=== PATIENT | female | born 1980 | race American Indian/Alaskan Native ===

== ENCOUNTER 2017-11-22 14:28 | Emergency (ER) | payer MEDICAID ==
[2017-11-22 14:50] VITALS: BP 116/77
[2017-11-22 15:38] LABS: Bilirubin,Urine NEG (Negative); Blood,Urine SM (Negative); Color,Urine Yellow (Yellow); Mucus,Urine 3+ /HPF; Protein,Urine <15 mg/dL mg/dL (Negative); WBC,Urine < 1.0 /HPF (0.0-6.0)
[2017-11-22 15:39] LABS: HCG Qualitative,Urine Negative (Negative)
[2017-11-22] MEDS ORDERED: TORADOL IM ONE (17:05)
--- NOTE | 2017-11-22 17:11 | Emergency Department Report ---
ED Back Pain/Injury HPI - General Chief Complaint: Back Pain/Injury Stated Complaint: BACK PAIN Time Seen by Provider: 11/22/17 16:56 Source: patient Limitations: No Limitations - History of Present Illness Initial Comments: This is a 37-year-old female nontoxic, well nourished in appearance, no acute signs of distress presents to the ED with c/o of acute on chronic low back pain that radiates to bilateral lower extremities. Patient stated 2 weeks ago and was moving and developed pain that is increasing. Patient stated this is a chronic pain that is going on for about 5 years and had a pain specialist and has been taking Percocet, Motrin, and baclofen. Patient stated that she currently does not have a pain management clinic here because she just moved from [place]. Patient denies any trauma. Patient denies any chest pain, shortness of breathe, fever, chills, headache, nausea, vomiting, numbness, tingling, bladder or bowel stability. Patient denies any urinary symptoms. Patient states allergies to metroniadole. PMH includes anxiety and back pain. MD Complaint: back pain -: week(s) (2) Similar Symptoms Previously: Yes Place: home Radiation: left leg, right leg Severity: mild Severity scale (0 -10): 8 Quality: aching Consistency: constant Improves With: immobilization, supine, sitting upright Worsens With: movement, walking Context: while lifting, turning/twisting Associated Symptoms: denies other symptoms. denies: confusion, weakness, chest pain, numbness, difficulty walking, cough, difficulty urinating, diaphoresis, incontinence, fever/chills, constipation, headaches, abdominal pain, loss of appetite, malaise, nausea/vomiting, rash, seizure, shortness of breath, syncope - Related Data Previous Rx's Medication Instructions Recorded Last Taken Type Acetaminophen/Codeine [Tylenol 1 tab PO Q6H PRN #12 tab 11/22/17 Unknown Rx /Codeine # 3 tab] Ibuprofen [Motrin] 600 mg PO Q8H PRN #30 tablet 11/22/17 Unknown Rx Allergies Allergy/AdvReac Type Severity Reaction Status Date / Time metronidazole [From Flagyl] AdvReac Itching Verified 11/22/17 14:50 ED Review of Systems ROS: Stated complaint: BACK PAIN Other details as noted in HPI Constitutional: denies: chills, fever Eyes: denies: eye pain, eye discharge, vision change ENT: denies: ear pain, throat pain Respiratory: denies: cough, shortness of breath, wheezing Cardiovascular: denies: chest pain, palpitations Endocrine: no symptoms reported Gastrointestinal: denies: abdominal pain, nausea, diarrhea Genitourinary: denies: urgency, dysuria, discharge Musculoskeletal: back pain. denies: joint swelling, arthralgia Skin: denies: rash, lesions Neurological: denies: headache, weakness, paresthesias Psychiatric: denies: anxiety, depression Hematological/Lymphatic: denies: easy bleeding, easy bruising ED Past Medical Hx - Past Medical History Hx Psychiatric Treatment: Yes (anxiety,depression) Additional medical history: back injury with disability - Surgical History Past Surgical History?: No - Social History Smoking Status: Current Every Day Smoker Substance Use Type: None - Medications Home Medications: Home Medications Medication Instructions Recorded Confirmed Last Taken Type Acetaminophen/Codeine [Tylenol 1 tab PO Q6H PRN #12 tab 11/22/17 Unknown Rx /Codeine # 3 tab] Ibuprofen [Motrin] 600 mg PO Q8H PRN #30 tablet 11/22/17 Unknown Rx ED Physical Exam - General Limitations: No Limitations General appearance: alert, in no apparent distress - Head Head exam: Present: atraumatic, normocephalic - Eye Eye exam: Present: normal appearance Pupils: Present: normal accommodation - ENT ENT exam: Present: normal exam, mucous membranes moist - Neck Neck exam: Present: normal inspection, full ROM. Absent: tenderness, meningismus - Respiratory Respiratory exam: Present: normal lung sounds bilaterally. Absent: respiratory distress, wheezes, rales, rhonchi, stridor, chest wall tenderness, accessory muscle use, decreased breath sounds, prolonged expiratory - Cardiovascular Cardiovascular Exam: Present: regular rate, normal rhythm, normal heart sounds. Absent: bradycardia, tachycardia, irregular rhythm, systolic murmur, diastolic murmur, rubs, gallop - GI/Abdominal GI/Abdominal exam: Present: soft, normal bowel sounds - Rectal Rectal exam: Present: deferred - Extremities Exam Extremities exam: Present: normal inspection, full ROM, normal capillary refill - Back Exam Back exam: Present: normal inspection, full ROM, paraspinal tenderness (lumbar region). Absent: tenderness, CVA tenderness (R), CVA tenderness (L), muscle spasm, vertebral tenderness, rash noted - Expanded Back Exam Expanded Back exam: Absent: saddle anesthesia Back exam: Negative Straight Leg Raising: Left, Right - Neurological Exam Neurological exam: Present: alert, oriented X3, normal gait - Psychiatric Psychiatric exam: Present: normal affect, normal mood - Skin Skin exam: Present: warm, dry, intact, normal color. Absent: rash ED Course Vital Signs 11/22/17 14:46 Temperature 98.6 F Pulse Rate 84 Respiratory 18 Rate Blood Pressure 116/77 O2 Sat by Pulse 98 Oximetry - Reevaluation(s) Reevaluation #1: 11/22/17 17:12 Patient is speaking in full sentences with no signs of distress noted. ED Medical Decision Making - Medical Decision Making This is a 37-year-old female that presents with low back strain. Patient is stable was examined by me. There is no signs or symptoms of cauda equina syndrome. Patient did receive Toradol 60 mg IM and ED this patient was resolved and subsided. UA within normal limits. [facility] has been reviewed that does not show any medications recent within the last year. I will give patient a 3 day course of Tylenol #3. Patient was referred to Follow-up with a primary care doctor in 3-5 days or if symptoms worsen and continue return to emergency room as soon as possible. At time of discharge, the patient does not seem toxic or ill in appearance. No acute signs of distress noted. Patient agrees to discharge treatment plan of care. No further questions noted by the patient. Critical care attestation.: If time is entered above; I have spent that time in minutes in the direct care of this critically ill patient, excluding procedure time. ED Disposition Clinical Impression: Chronic low back pain Qualifiers: Back pain laterality: bilateral Sciatica presence: with sciatica Sciatica laterality: bilateral sciatica Qualified Code(s): M54.42 - Lumbago with sciatica , left side; M54.41 - Lumbago with sciatica, right side; G89.29 - Other chronic pain Disposition: - TO HOME OR SELFCARE Is pt being admited?: No Does the pt Need Aspirin: No Condition: Stable Instructions: Chronic Back Pain (ED), Acetaminophen/Codeine (By mouth) Additional Instructions: Follow-up with a primary care/pain doctor in 3-5 days or if symptoms worsen and continue return to emergency room as soon as possible. Prescriptions: Acetaminophen/Codeine [Tylenol /Codeine # 3 tab] 1 tab PO Q6H PRN #12 tab PRN Reason: Pain Ibuprofen [Motrin] 600 mg PO Q8H PRN #30 tablet PRN Reason: Pain Referrals: PRIMARY CARE, [Primary Care Provider] - 3-5 Days CLAUDIA BARGER MD [Staff Physician] - 3-5 Days RY FUENTES MD [Staff Physician] - 3-5 Days [facility] [Provider Group] - 3-5 Days [facility] [Outside] - 3-5 Days Forms: Work/School Release Form(ED)
== END 2017-11-22 17:24 | disposition home or self-care (01) ==
LOC: ED 14:28
DX: G89.29 Other chronic pain (principal); M54.5 Low back pain; F17.200 Nicotine dependence, unspecified, uncomplicated; F41.9 Anxiety disorder, unspecified; Z88.1 Allergy status to other antibiotic agents
CPT/HCPCS: 81001; 81025; 96372; 99283; J1885

== ENCOUNTER 2021-05-22 09:04 | Emergency (ER) | payer MEDICAID ==
[2021-05-22 09:09] VITALS: BP 152/94
--- NOTE | 2021-05-22 09:50 | Emergency Department Report ---
ED General Adult HPI - General Chief complaint: Extremity Injury, Upper Stated complaint: RT HAND MIDDLE FINGER Time Seen by Provider: 05/22/21 09:35 Source: patient Mode of arrival: Ambulatory Limitations: No Limitations - History of Present Illness Initial comments: 41-year-old -Luxembourger female patient without past medical history presents with complaints of right middle finger pain and swelling x2 weeks. She states the swelling now appears to be in the back aspect of her hand also. She rates her pain as a 7/10 in severity and states it is normally relieved with ibuprofen. Patient states she is unsure of how she injured her hand, however she states 1 night she was drinking at a bar and when she left the bar she noticed her hand and finger were in pain she denies fever/chills/sweats or history of cancer. Noted decrease sensation or difficulty moving the hand per patient. - Related Data Previous Rx's Medication Instructions Recorded Last Taken Type Acetaminophen/Codeine [Tylenol 1 tab PO Q6H PRN #12 tab 11/22/17 Unknown Rx /Codeine # 3 tab] Ibuprofen [Motrin] 600 mg PO Q8H PRN #30 tablet 11/22/17 Unknown Rx Naproxen 500 mg PO BID PRN #20 tablet 05/22/21 Unknown Rx Allergies Allergy/AdvReac Type Severity Reaction Status Date / Time metronidazole [From Flagyl] AdvReac Itching Verified 11/22/17 14:50 ED Review of Systems ROS: Stated complaint: RT HAND MIDDLE FINGER Other details as noted in HPI Constitutional: denies: chills, diaphoresis, fever, malaise, weakness Musculoskeletal: joint swelling, arthralgia Skin: denies: lesions, change in color Neurological: denies: numbness, paresthesias ED Past Medical Hx - Past Medical History Previous Medical History?: Yes Hx Psychiatric Treatment: Yes (anxiety,depression) Additional medical history: back injury with disability - Surgical History Past Surgical History?: No - Social History Smoking Status: Current Every Day Smoker Substance Use Type: None - Medications Home Medications: Home Medications Medication Instructions Recorded Confirmed Last Taken Type Acetaminophen/Codeine [Tylenol 1 tab PO Q6H PRN #12 tab 11/22/17 Unknown Rx /Codeine # 3 tab] Ibuprofen [Motrin] 600 mg PO Q8H PRN #30 tablet 11/22/17 Unknown Rx Naproxen 500 mg PO BID PRN #20 tablet 05/22/21 Unknown Rx ED Physical Exam - General Limitations: No Limitations General appearance: alert, in no apparent distress, obese - Head Head exam: Present: atraumatic, normocephalic - Eye Eye exam: Present: scleral icterus - Respiratory Respiratory exam: Absent: respiratory distress - Cardiovascular Cardiovascular Exam: Present: regular rate - Extremities Exam Extremities exam: Present: other (Mild swelling noted to right middle finger and minimally to dorsal aspect of hand with tenderness to palpation; no erythema noted; normal perfusion of the fingers and full range of motion of the hand noted) - Neurological Exam Neurological exam: Present: alert, oriented X3 - Psychiatric Psychiatric exam: Present: normal affect, normal mood - Skin Skin exam: Present: warm, dry, intact, normal color. Absent: rash ED Course Vital Signs 05/22/21 09:08 Temperature 98.9 F Pulse Rate 112 H Respiratory 19 Rate Blood Pressure 152/94 O2 Sat by Pulse 99 Oximetry ED Medical Decision Making - Radiology Data Radiology results: report reviewed RIGHT HAND 3 VIEW(S) INDICATION / CLINICAL INFORMATION: swelling and pain, worse in middle finger COMPARISON: None available. FINDINGS: BONES / JOINT(S): No acute fracture or subluxation. No significant arthritis. SOFT TISSUES: No significant abnormality. ADDITIONAL FINDINGS: None. - Medical Decision Making 41-year-old -Lux[place] female patient without past medical history presents with complaints of right middle finger pain and swelling x2 weeks. She states the swelling now appears to be in the back aspect of her hand also. She rates her pain as a 7/10 in severity and states it is normally relieved with ibuprofen. Patient states she is unsure of how she injured her hand, however she states 1 night she was drinking at a bar and when she left the bar she noticed her hand and finger were in pain she denies fever/chills/sweats or history of cancer. Noted decrease sensation or difficulty moving the hand per patient. X-ray does not show any bony abnormalities. No signs of infection on exam. She denies any IV drug use. Will treat for hand sprain conservatively with rice method and NSAIDs. Recommend follow-up with orthopedics in 3 to 5 days. She is well-appearing, her vitals are normal, she is stable for discharge home. Strict return precautions were discussed in detail with patient who verbalizes understanding. Critical care attestation.: If time is entered above; I have spent that time in minutes in the direct care of this critically ill patient, excluding procedure time. ED Disposition Clinical Impression: Right hand pain Disposition: 01 HOME / SELF CARE / HOMELESS Is pt being admited?: No Condition: Stable Instructions: Hand Pain, Finger Sprain, Adult Prescriptions: Naproxen 500 mg PO BID PRN #20 tablet PRN Reason: pain Referrals: [facility] [Provider Group] - 3-5 Days Forms: Work/School Release Form(ED)
--- NOTE | 2021-05-22 10:15 | XRay Report ---
RIGHT HAND 3 VIEW(S) INDICATION / CLINICAL INFORMATION: swelling and pain, worse in middle finger COMPARISON: None available. FINDINGS: BONES / JOINT(S): No acute fracture or subluxation. No significant arthritis. SOFT TISSUES: No significant abnormality. ADDITIONAL FINDINGS: None. Signer Name: Darren Ruiz MD Signed: 05/22/2021 10:11 AM Workstation Name: [id number]
== END 2021-05-22 11:00 | disposition home or self-care (01) ==
LOC: ED 09:04
DX: M79.644 Pain in right finger(s) (principal); F41.9 Anxiety disorder, unspecified; F32.9 Major depressive disorder, single episode, unspecified; F17.200 Nicotine dependence, unspecified, uncomplicated; Z88.1 Allergy status to other antibiotic agents
CPT/HCPCS: 99282

== ENCOUNTER 2021-05-29 10:30 | Emergency (ER) | payer MEDICAID | END 2021-05-29 10:35 | disposition left against medical advice (07) | LOC: ED 10:30 | DX: M79.89 Other specified soft tissue disorders (principal); Z53.21 Procedure and treatment not carried out due to patient leaving prior to being seen by health care provider ==

== ENCOUNTER 2021-05-29 14:49 | Emergency (ER) | payer MEDICAID ==
[2021-05-29 15:08] VITALS: BP 148/89
--- NOTE | 2021-05-29 15:19 | Event Note ---
ED Screening Note ED Screening Note: NEW ONSET BLE SWELLING AND SOB TACHYCARDIA ON EXAM INCREASING WORSE OVER 2 WEEKS NO CP NO COVID IMMUNIZATION PMH ANXIETY AND DEPRESSION RX NONE PSH NONE LMP 9-22 MOM AND DAD A/W This initial assessment/diagnostic orders/clinical plan/treatment(s) is/are subject to change based on patients health status, clinical progression and re- assessment by fellow clinical providers in the ED. Further treatment and workup at subsequent clinical providers discretion. Patient/guardian urged not to elope from the ED as their condition may be serious if not clinically assessed and managed. Initial orders include: RO CHF
[2021-05-29 15:43] LABS: Basophils # (Auto) 0.1 K/mm3 (0.0-0.1); Basophils % (Auto) 0.9 % (0.0-1.8); Eosinophils # (Auto) 0.4 K/mm3 (0.0-0.4); Eosinophils % (Auto) 4.5 % (0.0-4.3); Hematocrit 29.1 % (30.3-42.9); Hemoglobin 10.4 gm/dl (10.1-14.3); Lymphocytes # (Auto) 1.9 K/mm3 (1.2-5.4); Lymphocytes % (Auto) 22.6 % (13.4-35.0); Mean Corpuscular HGB Conc 36 % (30-34); Mean Corpuscular Volume 88 fl (79-97); Monocytes # (Auto) 0.5 K/mm3 (0.0-0.8); Monocytes % (Auto) 5.5 % (0.0-7.3); Platelet Count 306 K/mm3 (140-440); Red Blood Count 3.32 M/mm3 (3.65-5.03); Red Cell Distribution Width 13.9 % (13.2-15.2)
--- NOTE | 2021-05-29 15:51 | Emergency Department Report ---
ED General Adult HPI - General Chief complaint: Back Pain/Injury Stated complaint: LOW BACK PAIN/FALL Time Seen by Provider: 05/29/21 15:11 Source: EMS Mode of arrival: Stretcher Limitations: No Limitations - Related Data Previous Rx's Medication Instructions Recorded Last Taken Type Acetaminophen/Codeine [Tylenol 1 tab PO Q6H PRN #12 tab 11/22/17 Unknown Rx /Codeine # 3 tab] Ibuprofen [Motrin] 600 mg PO Q8H PRN #30 tablet 11/22/17 Unknown Rx Naproxen 500 mg PO BID PRN #20 tablet 05/22/21 Unknown Rx Allergies Allergy/AdvReac Type Severity Reaction Status Date / Time metronidazole [From Flagyl] AdvReac Itching Verified 11/22/17 14:50 ED Review of Systems ROS: Stated complaint: LOW BACK PAIN/FALL Other details as noted in HPI ED Past Medical Hx - Past Medical History Hx Psychiatric Treatment: Yes (anxiety,depression) Additional medical history: back injury with disability - Social History Smoking Status: Current Every Day Smoker Substance Use Type: None - Medications Home Medications: Home Medications Medication Instructions Recorded Confirmed Last Taken Type Acetaminophen/Codeine [Tylenol 1 tab PO Q6H PRN #12 tab 11/22/17 Unknown Rx /Codeine # 3 tab] Ibuprofen [Motrin] 600 mg PO Q8H PRN #30 tablet 11/22/17 Unknown Rx Naproxen 500 mg PO BID PRN #20 tablet 05/22/21 Unknown Rx ED Physical Exam - General Limitations: No Limitations ED Course Vital Signs 05/29/21 15:04 Temperature 98.6 F Pulse Rate 108 H Respiratory 16 Rate Blood Pressure 148/89 [Right] O2 Sat by Pulse 98 Oximetry ED Medical Decision Making - Lab Data Result diagrams: 05/29/21 15:29 Critical care attestation.: If time is entered above; I have spent that time in minutes in the direct care of this critically ill patient, excluding procedure time. ED Disposition Clinical Impression: Dependent edema Low back strain Qualifiers: Encounter type: initial encounter Qualified Code(s): S39.012A - Strain of muscle, fascia and tendon of lower back, initial encounter Fall Qualifiers: Encounter type: initial encounter Qualified Code(s): W19.XXXA - Unspecified fall, initial encounter Disposition: 07 LEFT AGAINST MEDICAL ADVICE Is pt being admited?: No Condition: Stable Instructions: Lumbar Sprain, Edema, Back Injury Prevention, [id number], How to Use Cold Therapy, Peripheral Edema Additional Instructions: Use ice. Avoid salt. Return for problems and if you change your mind about waiting to be seen. Referrals: PRIMARY CARE, [Referring] - 3-5 Days ALVARADO ISBELL MD [Staff Physician] - 3-5 Days
--- NOTE | 2021-05-29 15:57 | Emergency Department Report ---
ED General Adult HPI - General Chief complaint: Back Pain/Injury Stated complaint: LOW BACK PAIN/FALL Time Seen by Provider: 05/29/21 15:11 Source: EMS Mode of arrival: Stretcher Limitations: No Limitations - History of Present Illness Initial comments: Patient states that she is here primarily because of swelling in her feet and ankles. She apparently was here earlier today and chose not to wait. She left without completing treatment. She had gone. She then fell and injured her back. She decided to come back in. She has had ongoing pedal edema for weeks. She is just in a new rehab facility and was told that the salt in their food may make her feet swell. She has no chest pain or shortness of breath which is no back pain. Has no history of trauma. She states that she is also noticed swelling of the hands, but that has improved. Today, she states that her legs buckled and she fell. She does not have any leg weakness currently. She is complaining of lower back pain. The pain does not radiate or migrate. There was no head trauma or loss of consciousness. - Related Data Previous Rx's Medication Instructions Recorded Last Taken Type Acetaminophen/Codeine [Tylenol 1 tab PO Q6H PRN #12 tab 11/22/17 Unknown Rx /Codeine # 3 tab] Ibuprofen [Motrin] 600 mg PO Q8H PRN #30 tablet 11/22/17 Unknown Rx Naproxen 500 mg PO BID PRN #20 tablet 05/22/21 Unknown Rx Allergies Allergy/AdvReac Type Severity Reaction Status Date / Time metronidazole [From Flagyl] AdvReac Itching Verified 11/22/17 14:50 ED Review of Systems ROS: Stated complaint: LOW BACK PAIN/FALL Other details as noted in HPI Constitutional: weakness (As per HPI) ENT: denies: throat pain Respiratory: denies: shortness of breath Cardiovascular: as per HPI. denies: chest pain Endocrine: other (Weight gain as per HPI related to the edema) Gastrointestinal: denies: abdominal pain Musculoskeletal: as per HPI Hematological/Lymphatic: denies: easy bruising ED Past Medical Hx - Past Medical History Hx Psychiatric Treatment: Yes (anxiety,depression) Additional medical history: back injury with disability - Social History Smoking Status: Current Every Day Smoker Substance Use Type: None - Medications Home Medications: Home Medications Medication Instructions Recorded Confirmed Last Taken Type Acetaminophen/Codeine [Tylenol 1 tab PO Q6H PRN #12 tab 11/22/17 Unknown Rx /Codeine # 3 tab] Ibuprofen [Motrin] 600 mg PO Q8H PRN #30 tablet 11/22/17 Unknown Rx Naproxen 500 mg PO BID PRN #20 tablet 05/22/21 Unknown Rx ED Physical Exam - General Limitations: No Limitations, Other (Pulse ox was noted and normal) General appearance: alert, in no apparent distress - Head Head exam: Present: atraumatic, normal inspection - Eye Eye exam: Present: normal appearance. Absent: scleral icterus, conjunctival injection - ENT ENT exam: Present: normal external ear exam - Neck Neck exam: Present: normal inspection - Respiratory Respiratory exam: Absent: respiratory distress - Neurological Exam Neurological exam: Present: alert, oriented X3 - Psychiatric Psychiatric exam: Present: normal affect, normal mood - Skin Skin exam: Present: warm, dry ED Course Vital Signs 05/29/21 15:04 Temperature 98.6 F Pulse Rate 108 H Respiratory 16 Rate Blood Pressure 148/89 [Right] O2 Sat by Pulse 98 Oximetry - Reevaluation(s) Reevaluation #1: 05/29/21 15:55 Patient had been seen earlier. Plan was for an MD to see her. Patient wanted to wait by the phone. I saw her in the waiting room while we were waiting labs. She told me that she did not want to wait. She did not want to be rolled into a room. She did not want us to evaluate her. She stated that she just needed to be discharged because her bus was going to leave and 20 minutes. I did have a discussion with her about the risk, benefits, and alternatives. This was given the fact that we did not have her test results back. She stated that she did not want to wait because her bus was going to be leaving. She requested that we discharge her. She was aware of the repercussions of choice and was able to verbalize that. She was subsequently discharged AGAINST MEDICAL ADVICE. ED Medical Decision Making - Lab Data Result diagrams: 05/29/21 15:29 Critical Care Time: No Critical care attestation.: If time is entered above; I have spent that time in minutes in the direct care of this critically ill patient, excluding procedure time. ED Disposition Clinical Impression: Leg edema, Low back pain Fall Qualifiers: Encounter type: initial encounter Qualified Code(s): W19.XXXA - Unspecified matt l, initial encounter Disposition: LEFT AGAINST MEDICAL ADVICE Is pt being admited?: No Condition: Stable Instructions: Lumbar Sprain, Edema, Back Injury Prevention, [id number], How to Use Cold Therapy, Peripheral Edema Additional Instructions: Use ice. Avoid salt. Return for problems and if you change your mind about waiting to be seen. Referrals: PRIMARY CARE, [Referring] - 3-5 Days ALVARADO ISBELL MD [Staff Physician] - 3-5 Days
[2021-05-29 16:06] LABS: Alanine Aminotransferase 11 units/L (7-56); Albumin 4.1 g/dL (3.9-5); BUN/Creatinine Ratio 13; Blood Urea Nitrogen 10 mg/dL (7-17); Calcium 9.2 mg/dL (8.4-10.2); Hemolysis Index 11
== END 2021-05-29 17:16 | disposition left against medical advice (07) ==
LOC: ED 14:49
DX: M54.50 Low back pain, unspecified (principal); R60.0 Localized edema; F17.200 Nicotine dependence, unspecified, uncomplicated; Z88.1 Allergy status to other antibiotic agents; W18.30XA Fall on same level, unspecified, initial encounter; Y93.89 Activity, other specified; Y92.89 Other specified places as the place of occurrence of the external cause; Y99.8 Other external cause status
CPT/HCPCS: 36415; 80053; 83880; 84484; 85025; 99283

== ENCOUNTER 2021-05-30 10:34 | Emergency (ER) | payer MEDICAID ==
[2021-05-30 11:03] VITALS: BP 130/81
--- NOTE | 2021-05-30 11:43 | Emergency Department Report ---
ED Extremity Problem HPI - General Chief complaint: Extremity Problem,Nontraumatic Stated complaint: BACK PAIN Time Seen by Provider: 05/30/21 11:31 Source: patient Mode of arrival: Ambulatory Limitations: No Limitations - History of Present Illness Initial comments: 41-year-old female who denies any significant past medical history presents to the ER today with bilateral lower extremity swelling and low back pain. Patient states that for the past 2 weeks has been having swelling to her bilateral lower leg and is just not getting better. She states that her legs feel tight and she has been having some mild pain in the legs. She states that they feel heavy. She states that she has some shortness of breath yesterday but this has since resolved. She denies any cough, chest pain, wheezing, fever or chills. She denies any history of heart disease. She denies any risk factors for PE or DVT. She denies any particular injury to the legs 2 weeks ago. She denies any insect bites. She states that she is not typically on her legs or walking c onstantly. He states that she had similar symptoms about 2 months ago, but resolved on its own. She also complains of pain in her lower back. He said that she lost her balance yesterday and accidentally fell and struck her back. She states that she is fractured one of the vertebrae in her back in the past and has been having back issues since but since the fall yesterday she been having increasing pain in her lower back. She reports no radiation of the pain. States it is worse with certain movements. She denies any saddle anesthesia, lower extremity numbness, tingling or weakness. He states that when she was diagnosed with a vertebral fracture in her back she never followed up with Ortho victims advocate clerk/specialist. MD Complaint: extremity pain, extremity swelling -: Gradual - Related Data Previous Rx's Medication Instructions Recorded Last Taken Type Acetaminophen/Codeine [Tylenol 1 tab PO Q6H PRN #12 tab 11/22/17 Unknown Rx /Codeine # 3 tab] Ibuprofen [Motrin] 600 mg PO Q8H PRN #30 tablet 11/22/17 Unknown Rx Naproxen 500 mg PO BID PRN #20 tablet 05/22/21 Unknown Rx Lidocaine [Lidoderm] 1 each TP Q12HR #10 adh..patch 05/30/21 Unknown Rx Tramadol HCl/Acetaminophen 1 each PO Q6HR #12 tablet 05/30/21 Unknown Rx [Ultracet Tablet] tiZANidine [Zanaflex 4mg TAB] 4 mg PO Q6HR PRN #20 tablet 05/30/21 Unknown Rx Allergies Allergy/AdvReac Type Severity Reaction Status Date / Time metronidazole [From Flagyl] AdvReac Itching Verified 11/22/17 14:50 ED Review of Systems ROS: Stated complaint: BACK PAIN Other details as noted in HPI Constitutional: denies: chills, fever Eyes: denies: eye pain, eye discharge, vision change ENT: denies: ear pain, throat pain, dental pain, hearing loss, epistaxis, congestion Respiratory: shortness of breath Cardiovascular: denies: chest pain, palpitations Endocrine: no symptoms reported Gastrointestinal: denies: abdominal pain, nausea, diarrhea, constipation, hematemesis, hematochezia Genitourinary: denies: urgency, dysuria, discharge Musculoskeletal: back pain, joint swelling Skin: denies: rash, lesions, change in color, change in hair/nails, pruritus Neurological: denies: headache, weakness, paresthesias, confusion, abnormal gait, vertigo Psychiatric: denies: anxiety, depression, auditory hallucinations, visual hallucinations, homicidal thoughts, suicidal thoughts Hematological/Lymphatic: denies: easy bleeding, easy bruising, swollen glands ED Past Medical Hx - Past Medical History Previous Medical History?: Yes Hx Psychiatric Treatment: Yes (anxiety,depression) Additional medical history: back injury with disability - Surgical History Past Surgical History?: No - Social History Smoking Status: Current Every Day Smoker Substance Use Type: None - Medications Home Medications: Home Medications Medication Instructions Recorded Confirmed Last Taken Type Acetaminophen/Codeine [Tylenol 1 tab PO Q6H PRN #12 tab 11/22/17 Unknown Rx /Codeine # 3 tab] Ibuprofen [Motrin] 600 mg PO Q8H PRN #30 tablet 11/22/17 Unknown Rx Naproxen 500 mg PO BID PRN #20 tablet 05/22/21 Unknown Rx Lidocaine [Lidoderm] 1 each TP Q12HR #10 adh..patch 05/30/21 Unknown Rx Tramadol HCl/Acetaminophen 1 each PO Q6HR #12 tablet 05/30/21 Unknown Rx [Ultracet Tablet] tiZANidine [Zanaflex 4mg TAB] 4 mg PO Q6HR PRN #20 tablet 05/30/21 Unknown Rx ED Physical Exam - General Limitations: No Limitations General appearance: alert, in no apparent distress - Head Head exam: Present: atraumatic, normocephalic, normal inspection - Eye Eye exam: Present: normal appearance, PERRL, EOMI Pupils: Present: normal accommodation - Neck Neck exam: Present: normal inspection, full ROM - Respiratory Respiratory exam: Present: normal lung sounds bilaterally. Absent: respiratory distress, wheezes, rales, rhonchi - Cardiovascular Cardiovascular Exam: Present: regular rate, normal rhythm, normal heart sounds - GI/Abdominal GI/Abdominal exam: Present: soft. Absent: distended, tenderness, guarding, rebound - Extremities Exam Extremities exam: Present: pedal edema (Moderate nonpitting edema noted to bilateral lower legs especially in the ankle; no skin discoloration noted; still pulses and cap refills normal.), calf tenderness (Mild, bilaterally). Absent: normal capillary refill ED Course Vital Signs 05/30/21 05/30/21 05/30/21 11:01 12:06 13:21 Temperature 98.2 F Pulse Rate 94 H Respiratory 18 18 17 Rate Blood Pressure 130/81 O2 Sat by Pulse 95 Oximetry ED Medical Decision Making - Lab Data Result diagrams: 05/30/21 12:57 05/30/21 12:57 - Radiology Data Radiology results: report reviewed Patient: BILL MALLORY MR#: [id number] : 1980 Acct:[id number] Age/Sex: 41 / F ADM Date: 05/30/21 Loc: ED Attending Dr: Ordering Physician: ROSINA QUINN Date of Service: 05/30/21 Procedure(s): CT angio chest Accession Number(s): [id number] cc: ROSINA QUINN CTA CHEST WITH CONTRAST INDICATION / CLINICAL INFORMATION: SOB/leg swelling/positive d-dimer OMNI 350 100 ML. TECHNIQUE: Axial CT images were obtained through the chest after injection of IV contrast. 3 plane MIP and/or 3D reconstructions were produced. All CT scans at this location are performed using CT dose reduction for ALARA by means of automated exposure control. COMPARISON: Chest radiograph earlier same day. FINDINGS: PULMONARY ARTERIES: No pulmonary emboli. THORACIC AORTA: No significant abnormality. HEART: No significant abnormality. CORONARY ARTERY CALCIFICATION: None. MEDIASTINUM / AURY: No significant abnormality. PLEURA: No pleural effusion. No pneumothorax. LUNGS: No acute air space or interstitial disease. ADDITIONAL FINDINGS: None. UPPER ABDOMEN: No acute findings. SKELETAL STRUCTURES: No significant osseous abnormality. IMPRESSION: 1. No CT evidence for pulmonary embolism. 2. No acute findings. Signer Name: Conner Campos MD Signed: 05/30/2021 2:57 PM Workstation Name: [id number] Transcribed By: SB Dictated By: CONNER CAMPOS MD Electronically Authenticated By: CONNER CAMPOS MD Signed Date/Time: 05/30/211456 DD/ 54 TD/TT: Patient: BILL MALLORY MR#: [id number] : 1980 Acct:[id number] Age/Sex: 41 / F ADM Date: 05/30/21 Loc: ED Attending Dr: Ordering Physician: ROSINA QUINN Date of Service: 05/30/21 Procedure(s): VL venous duplex LE BILAT Accession Number(s): [id number] cc: ROSINA QUINN DUPLEX DOPPLER LOWER EXTREMITY VEINS, BILATERAL INDICATION / CLINICAL INFORMATION: swelling/tight. TECHNIQUE: Duplex doppler imaging was performed through the veins of both lower extremities using venous compression and other maneuvers. COMPARISON: None available. FINDINGS: RIGHT COMMON FEMORAL VEIN: Negative. RIGHT FEMORAL VEIN: Negative. RIGHT POPLITEAL VEIN: Negative. RIGHT CALF VEINS: Negative. LEFT COMMON FEMORAL VEIN: Negative. LEFT FEMORAL VEIN: Negative. LEFT POPLITEAL VEIN: Negative. LEFT CALF VEINS: Negative. ADDITIONAL FINDINGS: None. IMPRESSION: 1. No sonographic evidence for DVT in either lower extremity. Signer Name: Jesús Albarado DO Signed: 05/30/2021 2:28 PM Workstation Name: [id number] Transcribed By: SHERLY Dictated By: JESÚS ALBARADO DO Electronically Authenticated By: JESÚS ALBARADO DO Signed Date/Time: 05/30/211427 DD/ 26 TD/TT: Patient: BILL MALLORY MR#: [id number] : 1980 Acct:[id number] Age/Sex: 41 / F ADM Date: 05/30/21 Loc: ED Attending Dr: Ordering Physician: ROSINA QUINN Date of Service: 05/30/21 Procedure(s): XR spine lumbosacral 2-3V Accession Number(s): [id number] cc: ROSINA QUINN Fluoro Time In Minutes: LUMBOSACRAL SPINE 3 VIEWS INDICATION: fall low back pain. COMPARISON: None. IMPRESSION: Normal alignment. No significant degenerative disc disease. There is mild facet arthropathy at L4-5 and L5-S1. No acute osseous or soft tissue abnormality. Signer Name: Levi Dimas Jr, MD Signed: 05/30/2021 2:00 PM Workstation Name: [id number] Transcribed By: TTR Dictated By: LEVI DIMAS JR, MD Electronically Authenticated By: LEVI DIMAS JR, MD Signed Date/Time: 05/30/211399 DD/ 1359 TD/TT: Patient: BILL MALLORY MR#: [id number] : 1980 Acct:[id number] Age/Sex: 41 / F ADM Date: 05/30/21 Loc: ED Attending Dr: Ordering Physician: ROSINA QUINN Date of Service: 05/30/21 Procedure(s): XR chest routine 2V Accession Number(s): [id number] cc: ROSINA QUINN Fluoro Time In Minutes: CHEST 2 VIEWS INDICATION: SOB/leg swelling. COMPARISON: None available FINDINGS: Support devices: None. Heart: Within normal limits. Lungs/pleura: No acute air space or interstitial disease. No pneumothorax. Additional findings: None. IMPRESSION: No acute findings. Signer Name: Levi Dimas Jr, MD Signed: 05/30/2021 2:00 PM Workstation Name: [id number] Transcribed By: TTR Dictated By: LEVI DIMAS JR, MD Electronically Authenticated By: LEVI DIMAS JR, MD Signed Date/Time: 05/30/211399 DD/ 1400 TD/TT: - Medical Decision Making 1541: labs reviewed: CBC and CMP unremarkable. D-dimer was elevated at 582.79 given patient complaining of lower extremity pain and swelling with obvious swelling on exam, and her episode of shortness of breath yesterday but no CP, bilateral lower extremity venous Dopplers and a CT were ordered. Venous Doppler today was negative for DVT. CTA negative for PE. Patient also complained of increased low back pain since her accidental fall yesterday and lumbar spine x-ray today showed nothing acute. Patient has no saddle anesthesia, she has no lower extremity weakness, and she has a normal gait here in the ER. She does not appear to be in any significant pain or respiratory distress. She is not toxic or ill appearing. Discussed all results with patient. At this time there is not indication for additional test or admission. Pt will be given referral to a PCP and also orthospine specialist. Patient expressed onset of all instructions and agree with plan. Patient was stable at time of discharge. Critical care attestation.: If time is entered above; I have spent that time in minutes in the direct care of this critically ill patient, excluding procedure time. ED Disposition Clinical Impression: Acute exacerbation of chronic low back pain, Leg edema, Dependent edema Disposition: HOME / SELF CARE / HOMELESS Is pt being admited?: No Does the pt Need Aspirin: No Instructions: Chronic Back Pain, Hgoc-bb-Cibm, Peripheral Edema Additional Instructions: Elevate your leg as often as possible. Take the Robaxin, and use the Lidoderm patches as prescribed to help with your back pain. The Ultracet as prescribed also help with pain. I do recommend following up with your primary student career development specialist, if you do not have one, 1 will be provided for you. You can also follow-up with the orthopedic victims advocate clerk/specialist listed in your discharge instructions if you continue to have back pain. Return to the ER if your symptoms changes or worsens in any way. Prescriptions: Lidocaine [Lidoderm] 1 each TP Q12HR #10 adh..patch Tramadol HCl/Acetaminophen [Ultracet Tablet] 1 each PO Q6HR #12 tablet tiZANidine [Zanaflex 4mg TAB] 4 mg PO Q6HR PRN #20 tablet PRN Reason: Muscle Spasm Referrals: [facility] [Provider Group] - 3-5 Days [facility] [Provider Group] - 3-5 Days ( At: [facility] [address] [facility] [address], [place] [address] ) Time of Disposition: 15:29 Print Language: MOLDOVAN
[2021-05-30] MEDS ORDERED: CYCLOBENZAPRINE 10 MG TAB PO ONE (11:44)
[2021-05-30] MEDS ORDERED: ACETAMINOPHEN 325 MG TAB PO ONE (11:44)
[2021-05-30] MEDS ORDERED: KETOROLAC 10 MG TAB PO ONE (12:12)
[2021-05-30 13:14] LABS: Basophils # (Auto) 0.1 K/mm3 (0.0-0.1); Basophils % (Auto) 0.8 % (0.0-1.8); Eosinophils # (Auto) 0.5 K/mm3 (0.0-0.4); Eosinophils % (Auto) 6.8 % (0.0-4.3); Hemoglobin 10.6 gm/dl (10.1-14.3); Lymphocytes # (Auto) 2.2 K/mm3 (1.2-5.4); Lymphocytes % (Auto) 27.7 % (13.4-35.0); Mean Corpuscular HGB Conc 34 % (30-34); Mean Corpuscular Volume 88 fl (79-97); Monocytes # (Auto) 0.4 K/mm3 (0.0-0.8); Monocytes % (Auto) 5.3 % (0.0-7.3); Platelet Count 336 K/mm3 (140-440); Red Blood Count 3.53 M/mm3 (3.65-5.03)
[2021-05-30 13:48] LABS: Alanine Aminotransferase 9 units/L (7-56); Albumin 3.8 g/dL (3.9-5); BUN/Creatinine Ratio 19; Blood Urea Nitrogen 15 mg/dL (7-17); Calcium 9.3 mg/dL (8.4-10.2); Hemolysis Index 5
--- NOTE | 2021-05-30 14:04 | XRay Report ---
LUMBOSACRAL SPINE 3 VIEWS INDICATION: fall low back pain. COMPARISON: None. IMPRESSION: Normal alignment. No significant degenerative disc disease. There is mild facet arthrop athy at L4-5 and L5-S1. No acute osseous or soft tissue abnormality. Signer Name: Levi Dimas Jr, MD Signed: 05/30/2021 2:00 PM Workstation Name: [id number]
--- NOTE | 2021-05-30 14:05 | XRay Report ---
CHEST 2 VIEWS INDICATION: SOB/leg swelling. COMPARISON: None available FINDINGS: Support devices: None. Heart: Within normal limits. Lungs/pleura: No acute air space or interstitial disease. No pneumothorax. Additional findings: None. IMPRESSION: No acute findings. Signer Name: Levi Dimas Jr, MD Signed: 05/30/2021 2:00 PM Workstation Name: [id number]
--- NOTE | 2021-05-30 14:32 | Vascular Lab Report ---
DUPLEX DOPPLER LOWER EXTREMITY VEINS, BILATERAL INDICATION / CLINICAL INFORMATION: swelling/tight. TECHNIQUE: Duplex doppler imaging was performed through the veins of both lower extremities using sweetie ous compression and other maneuvers. COMPARISON: None available. FINDINGS: RIGHT COMMON FEMORAL VEIN: Negative. RIGHT FEMORAL VEIN: Negative. RIGHT POPLITEAL VEIN: Negative. RIGHT CALF VEINS: Negative. LEFT COMMON FEMORAL VEIN: Negative. LEFT FEMORAL VEIN: Negative. LEFT POPLITEAL VEIN: Negative. LEFT CALF VEINS: Negative. ADDITIONAL FINDINGS: None. IMPRESSION: 1. No sonographic evidence for DVT in either lower extremity. Signer Name: Jesús Lockwood DO Signed: 05/30/2021 2:28 PM Workstation Name: [id number]
--- NOTE | 2021-05-30 15:01 | Cat Scan Report ---
CTA CHEST WITH CONTRAST INDICATION / CLINICAL INFORMATION: SOB/leg swelling/positive d-dimer OMNI 350 100 ML. TECHNIQUE: Axial CT images were obtained through the chest after injection of IV contrast. 3 plane IL P and/or 3D reconstructions were produced. All CT scans at this location are performed using CT dose reduction for ALARA by means of automated exposure control. COMPARISON: Chest radiograph earlier same day. FINDINGS: PULMONARY ARTERIES: No pulmonary emboli. THORACIC AORTA: No significant abnormality. HEART: No significant abnormality. CORONARY ARTERY CALCIFICATION: None. MEDIASTINUM / AURY: No significant abnormality. PLEURA: No pleural effusion. No pneumothorax. LUNGS: No acute air space or interstitial disease. ADDITIONAL FINDINGS: None. UPPER ABDOMEN: No acute findings. SKELETAL STRUCTURES: No significant osseous abnormality. IMPRESSION: 1. No CT evidence for pulmonary embolism. 2. No acute findings. Signer Name: Conner Campos MD Signed: 05/30/2021 2:57 PM Workstation Name: [id number]
== END 2021-05-30 16:11 | disposition home or self-care (01) ==
LOC: ED 10:34
DX: M54.59 Other low back pain (principal); R60.0 Localized edema; G89.29 Other chronic pain; F17.200 Nicotine dependence, unspecified, uncomplicated; Z88.8 Allergy status to other drugs, medicaments and biological substances
CPT/HCPCS: 36415; 71046; 71275; 72100; 80053; 84703; 85025; 85379; 93970; 99284; Q9967

== ENCOUNTER 2021-06-22 21:06 | Emergency (ER) | payer MEDICAID ==
[2021-06-22 21:22] VITALS: BP 114/78
--- NOTE | 2021-06-22 21:43 | Emergency Department Report ---
ED General Adult HPI - General Chief complaint: Medical Clearance Stated complaint: MEDICAL CLEARANCE Time Seen by Provider: 06/22/21 21:27 Source: patient Mode of arrival: Ambulatory Limitations: No Limitations - History of Present Illness Initial comments: Patient states that she was sent here for medical clearance from [place]. Allegedly, a homeless person was on premises. He allegedly was selling prescriptions. The patient states that he was apparently escorted off premises. She was awoken and told to come here for medical clearance. They alleged that she was getting out of a truck. Patient states that she has been at [place] for 3 days. She admits to using cocaine. She states that she is not taking any other medication. She is not suicidal homicidal. She is not hearing voices currently. She does not know why she was actually told to come here. She states that she is welcome back. Patient states that we are welcome to test her for anything that we deem appropriate. - Related Data Previous Rx's Medication Instructions Recorded Last Taken Type Acetaminophen/Codeine [Tylenol 1 tab PO Q6H PRN #12 tab 11/22/17 Unknown Rx /Codeine # 3 tab] Ibuprofen [Motrin 600 MG tab] 600 mg PO Q8H PRN #30 tablet 11/22/17 Unknown Rx Naproxen 500 mg PO BID PRN #20 tablet 05/22/21 Unknown Rx Lidocaine [Lidoderm] 1 each TP Q12HR #10 adh..patch 05/30/21 Unknown Rx Tramadol HCl/Acetaminophen 1 each PO Q6HR #12 tablet 05/30/21 Unknown Rx [Ultracet] tiZANidine [Zanaflex 4mg TAB] 4 mg PO Q6HR PRN #20 tablet 05/30/21 Unknown Rx Ketorolac [Toradol] 10 mg PO Q6H PRN 5 Days #20 tablet 06/14/21 Unknown Rx Allergies Allergy/AdvReac Type Severity Reaction Status Date / Time metronidazole [From Flagyl] AdvReac Itching Verified 06/13/21 01:12 ED Review of Systems ROS: Stated complaint: MEDICAL CLEARANCE Other details as noted in HPI Comment: All other systems reviewed and negative Constitutional: denies: fever Eyes: denies: vision change ENT: denies: throat pain Respiratory: denies: cough Cardiovascular: denies: chest pain Endocrine: denies: unexplained weight loss Gastrointestinal: denies: abdominal pain Genitourinary: denies: dysuria Musculoskeletal: denies: back pain Skin: denies: rash Neurological: denies: headache Psychiatric: denies: suicidal thoughts Hematological/Lymphatic: denies: easy bruising ED Past Medical Hx - Past Medical History Previous Medical History?: Yes Hx Psychiatric Treatment: Yes (anxiety,depression) Additional medical history: back injury with disability - Surgical History Past Surgical History?: No - Family History Family history: no significant - Social History Smoking Status: Current Every Day Smoker (We discussed tobacco cessation x3 minutes) Substance Use Type: None - Medications Home Medications: Home Medications Medication Instructions Recorded Confirmed Last Taken Type Acetaminophen/Codeine [Tylenol 1 tab PO Q6H PRN #12 tab 11/22/17 Unknown Rx /Codeine # 3 tab] Ibuprofen [Motrin 600 MG tab] 600 mg PO Q8H PRN #30 tablet 11/22/17 Unknown Rx Naproxen 500 mg PO BID PRN #20 tablet 05/22/21 Unknown Rx Lidocaine [Lidoderm] 1 each TP Q12HR #10 adh..patch 05/30/21 Unknown Rx Tramadol HCl/Acetaminophen 1 each PO Q6HR #12 tablet 05/30/21 Unknown Rx [Ultracet] tiZANidine [Zanaflex 4mg TAB] 4 mg PO Q6HR PRN #20 tablet 05/30/21 Unknown Rx Ketorolac [Toradol] 10 mg PO Q6H PRN 5 Days #20 tablet 06/14/21 Unknown Rx ED Physical Exam - General Limitations: No Limitations, Other (Pulse ox noted and normal) General appearance: alert, in no apparent distress - Head Head exam: Present: atraumatic, normocephalic, normal inspection - Eye Eye exam: Present: normal appearance, EOMI. Absent: scleral icterus - ENT ENT exam: Present: normal exam, normal orophraynx - Neck Neck exam: Present: normal inspection. Absent: meningismus - Respiratory Respiratory exam: Present: normal lung sounds bilaterally. Absent: respiratory distress - Cardiovascular Cardiovascular Exam: Present: regular rate, normal rhythm - GI/Abdominal GI/Abdominal exam: Present: soft. Absent: tenderness - Extremities Exam Extremities exam: Present: normal capillary refill. Absent: pedal edema - Back Exam Back exam: Absent: CVA tenderness (R), CVA tenderness (L) - Neurological Exam Neurological exam: Present: alert, oriented X3, CN II-XII intact, normal gait. Absent: motor sensory deficit - Psychiatric Psychiatric exam: Present: normal affect, normal mood - Skin Skin exam: Present: warm, dry ED Course Vital Signs 06/22/21 21:21 Temperature 98.4 F Pulse Rate 94 H Respiratory 16 Rate Blood Pressure 114/78 O2 Sat by Pulse 99 Oximetry - Reevaluation(s) Reevaluation #1: 06/22/21 21:43 Labs ordered. Old records reviewed. Reevaluation #2: 06/22/21 22:16 Labs were noted and the patient was discharged ED Medical Decision Making - Lab Data Result diagrams: 06/22/21 21:26 06/22/21 21:26 - Medical Decision Making Patient was sent here for medical clearance. There was some question as to whether she was doing illicit substances or taking somebody else's prescription. She does not appear to be intoxicated from any source. There is no evidence of metabolic derangement. Drug screen has been reviewed. At this time, patient was medically cleared. She was discharged and returned to [place]. She is not west icidal or homicidal. There is no evidence of acute psychosis or delusion. Critical Care Time: No Critical care attestation.: If time is entered above; I have spent that time in minutes in the direct care of this critically ill patient, excluding procedure time. ED Disposition Clinical Impression: Medical clearance for psychiatric admission Disposition: HOME / SELF CARE / HOMELESS Is pt being admited?: No Condition: Stable Additional Instructions: Continue your regular medication. Drink plenty water. Follow-up with your regular doctor. If you do not have a regular doctor, follow-up with the referral physician. Return for any problems or concerns. Return if you develop any symptoms or issues. Referrals: PRIMARY MD ANNA [Referring] - 3-5 Days CLAUDIA WHITE MD [Staff Physician] - 3-5 Days
[2021-06-22 21:56] LABS: Basophils % (Auto) 0.7 % (0.0-1.8); Eosinophils # (Auto) 0.3 K/mm3 (0.0-0.4); Eosinophils % (Auto) 4.7 % (0.0-4.3); Hematocrit 34.2 % (30.3-42.9); Hemoglobin 11.6 gm/dl (10.1-14.3); Lymphocytes # (Auto) 2.8 K/mm3 (1.2-5.4); Lymphocytes % (Auto) 41.6 % (13.4-35.0); Mean Corpuscular HGB Conc 34 % (30-34); Mean Corpuscular Volume 85 fl (79-97); Monocytes # (Auto) 0.5 K/mm3 (0.0-0.8); Monocytes % (Auto) 6.8 % (0.0-7.3); Platelet Count 312 K/mm3 (140-440); Red Blood Count 4.03 M/mm3 (3.65-5.03); Red Cell Distribution Width 13.1 % (13.2-15.2)
[2021-06-22 22:08] LABS: Amphetamine Screen,Urine PRESUMPTIVE NEGATIVE; Benzodiazepines Screen,Urine PRESUMPTIVE POSITIVE; Cannabinoid Screen,Urine PRESUMPTIVE NEGATIVE; Cocaine Screen,Urine PRESUMPTIVE POSITIVE; Methadone Screen,Urine PRESUMPTIVE NEGATIVE; Opiate Screen,Urine PRESUMPTIVE NEGATIVE
[2021-06-22 22:10] LABS: Bacteria,Urine 1+ /HPF (Negative); Mucus,Urine 3+ /HPF; WBC,Urine < 1.0 /HPF (0.0-6.0)
[2021-06-22 22:18] LABS: Color,Urine Yellow (Yellow)
[2021-06-22 22:19] LABS: Bilirubin,Urine Negative (Negative); Blood,Urine Negative (Negative); Urobilinogen,Urine < 2.0 mg/dL (<2.0)
[2021-06-22 22:35] LABS: BUN/Creatinine Ratio 10; Blood Urea Nitrogen 8 mg/dL (7-17); Calcium 9.1 mg/dL (8.4-10.2); Hemolysis Index 1
== END 2021-06-22 23:14 | disposition home or self-care (01) ==
LOC: ED 21:06
DX: Z13.30 Encounter for screening examination for mental health and behavioral disorders, unspecified (principal); F14.10 Cocaine abuse, uncomplicated; Z59.00 Homelessness unspecified; F32.9 Major depressive disorder, single episode, unspecified; F41.9 Anxiety disorder, unspecified; Z79.899 Other long term (current) drug therapy
CPT/HCPCS: 36415; 80048; 80307; 80320; 81001; 85025; 99283; G0480